=== PATIENT | male | born 2000 | race Caucasian/White ===

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

== ENCOUNTER 2018-06-19 00:52 | Emergency (ER) | payer OTHER ==
[2018-06-19 01:00] VITALS: RESP 18
[2018-06-19] MEDS ORDERED: LIDOCAINE 1% INJ 10MG/ML (20 ML MDV) SQ ONE (01:37)
--- NOTE | 2018-06-19 03:09 | ED ---
Skin/Abscess/FB HPI - General Chief complaint: Skin/Abscess/Foreign Body Stated complaint: Multiple leg abscesses Time Seen by Provider: 06/19/18 01:33 Source: patient Mode of arrival: ambulatory Limitations: no limitations - History of Present Illness Initial comments: 18-year-old male patient presented to the emergency department today for evaluation of abscess to the right lower leg. The patient states that his girlfriend was recently admitted for multiple abscesses. States that he first noticed the lesion 2 days ago. States it has become more red and swollen. States it is tender to touch. He denies any drainage from the site. States he has been applying warm compresses but has been unable to get it to drain. He denies any fever or chills. Denies any history of similar symptoms. Denies any alcohol or use of street drugs. Patient denies any recent rash, fever, chills, shortness breath, chest pain, abdominal pain, nausea, vomiting, diarrhea , constipation, back pain, numbness, tingling, dizziness, weakness, hematuria, dysuria, urinary urgency, urinary frequency, headache, visual changes, or any other complaints. - Related Data Previous Rx's Medication Instructions Recorded Ciprofloxacin HCl [Cipro] 500 mg PO BID #10 tab 12/25/16 Sulfamethoxazole/Trimethoprim 1 each PO BID #14 tablet 06/19/18 [Bactrim DS 800-160 mg] Allergies Allergy/AdvReac Type Severity Reaction Status Date / Time prednisone AdvReac Nausea & Verified 06/19/18 01:02 Vomiting Review of Systems ROS Statement: Those systems with pertinent positive or pertinent negative responses have been documented in the HPI. ROS Other: All systems not noted in ROS Statement are negative. Past Medical History Past Medical History: Asthma, Pneumonia History of Any Multi-Drug Resistant Organisms: None Reported Past Surgical History: No Surgical Hx Reported Past Psychological History: ADD/ADHD, Bipolar, Depression Smoking Status: Never smoker Past Alcohol Use History: None Reported Past Drug Use History: Marijuana - Past Family History Mother Family Medical History: GERD/Reflux Father Family Medical History: Diabetes Mellitus General Exam Limitations: no limitations General appearance: alert, in no apparent distress Eye exam: Present: normal appearance, PERRL, EOMI. Absent: scleral icterus, conjunctival injection, periorbital swelling ENT exam: Present: normal exam, normal oropharynx, mucous membranes moist Respiratory exam: Present: normal lung sounds bilaterally. Absent: respiratory distress, wheezes, rales, rhonchi, stridor Cardiovascular Exam: Present: regular rate, normal rhythm, normal heart sounds. Absent: systolic murmur, diastolic murmur, rubs, gallop, clicks Extremities exam: Present: full ROM, normal capillary refill, other (Agent has 2 cm abscess noted to the right lateral calf. There is minimal surrounding erythema. Fluctuance noted. No evidence of drainage at this time.). Absent: normal inspection, tenderness, pedal edema, joint swelling, calf tenderness Neurological exam: Present: alert, oriented X3, CN II-XII intact Psychiatric exam: Present: normal affect, normal mood Skin exam: Present: warm, dry, intact, normal color. Absent: rash Course Vital Signs 06/19/18 06/19/18 00:56 04:10 Temperature 99.0 F 97.8 F Pulse Rate 81 71 Respiratory 18 18 Rate Blood Pressure 127/77 149/94 O2 Sat by Pulse 97 98 Oximetry Procedures - Incision & Drainage Consent Obtained: verbal consent Site: lower extremity (Right lateral calf) Size (cm): 2 Anesthetic Used: lidocaine 1% Amount (mLs): 5 I&D Cleaning Method: Betadine Sterile Field Used?: Yes Scalpel Used: #11 Needle Aspiration Performed?: No Irrigation Performed?: No I&D Drainage Obtained: Pus, Blood Packing: Iodoform Culture Obtained?: Yes Patient Tolerated Procedure: well Medical Decision Making - Medical Decision Making 18-year-old male patient presented to the emergency department today for evaluation of abscess to the right lower leg. Physical examination did reveal 2 cm abscess with minimal surrounding erythema to the right lower leg. There is some fluctuance. Did perform incision and drainage and did get output of pus and blood. Wound was packed with iodoform gauze. Patient was educated regarding wound care and application of warm compresses. He'll be given a prescription for Bactrim. He is instructed to follow-up with his primary care physician for recheck of the wound in 1-2 days. Return parameters were discussed in detail. He verbalizes understanding and agrees with this plan. Disposition Clinical Impression: Abscess of right lower leg Disposition: HOME SELF-CARE Condition: Good Instructions: Abscess Incision and Drainage (ED), Abscess (ED) Additional Instructions: Apply warm compresses to the right leg 20 minutes at a time at least 4 times per day. Complete antibiotic prescription and full. Follow-up with your primary care physician for recheck in 1-2 days. Return here immediately for any new, worsening, or concerning symptoms. Prescriptions: Sulfamethoxazole/Trimethoprim [Bactrim DS 800-160 mg] 1 each PO BID #14 tablet Is patient prescribed a controlled substance at d/c from ED?: No Referrals: None,Stated [Primary Care Provider] - 1-2 days Time of Disposition: 03:09
[2018-06-19 04:11] VITALS: BP 149/94; PULSE 71; TEMP 97.8
== END 2018-06-19 04:14 | disposition home or self-care (01) ==
LOC: EC 00:52
DX: L02.415 Cutaneous abscess of right lower limb (principal); Z88.8 Allergy status to other drugs, medicaments and biological substances
CPT/HCPCS: 10060; 87070; 87205; 99283

== ENCOUNTER 2018-07-04 15:05 | Emergency (ER) | payer OTHER ==
[2018-07-04 16:00] VITALS: BP 122/70; PULSE 60; RESP 18; TEMP 98.2
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
--- NOTE | 2018-07-04 16:57 | XR ---
EXAMINATION TYPE: XR lumbosacral spine min 4V DATE OF EXAM: 07/04/2018 COMPARISON: NONE HISTORY: Pain TECHNIQUE: 5 views FINDINGS: Lumbar vertebra have normal alignment. Posterior elements are intact. There is slight narro wing of L4-5 disc space. Sacroiliac joints appear intact. IMPRESSION: Slight narrowing at L4-5. No fracture.
== END 2018-07-04 18:00 | disposition home or self-care (01) ==
LOC: EC 15:05
DX: S39.012A Strain of muscle, fascia and tendon of lower back, initial encounter (principal); J06.9 Acute upper respiratory infection, unspecified; F12.188 Cannabis abuse with other cannabis-induced disorder; R11.2 Nausea with vomiting, unspecified; F17.200 Nicotine dependence, unspecified, uncomplicated; Z86.14 Personal history of Methicillin resistant Staphylococcus aureus infection; Z88.1 Allergy status to other antibiotic agents; Z88.8 Allergy status to other drugs, medicaments and biological substances; W10.9XXA Fall (on) (from) unspecified stairs and steps, initial encounter; Y93.01 Activity, walking, marching and hiking
CPT/HCPCS: 72110; 87081; 87430; 99284

== ENCOUNTER 2018-07-10 17:35 | Emergency (ER) | payer OTHER ==
[2018-07-10 17:59] VITALS: BP 151/79; PULSE 59; RESP 20; TEMP 98.3
--- NOTE | 2018-07-10 18:33 | ED ---
Back Pain HPI - General Chief Complaint: Back Pain/Injury Stated Complaint: back pain Time Seen by Provider: 07/10/18 18:06 Source: patient, RN notes reviewed Mode of arrival: ambulatory Limitations: no limitations - History of Present Illness Initial Comments: This is a 18-year-old male who presents to the emergency department with chief complaint of low back pain. Patient states that he was seen here last Saturday after he slipped and fell. He states that an x-ray of his low back was obtained at the time and patient was told it was normal. He states he was discharged home with a prescription for Tylenol. Patient states that the pain has not improved. He reports pain to the left lower back with radiation down the back of his left leg. He states that radiation of pain occurs with movement and walking. He denies any new falls, injuries or trauma. Denies saddle paresthesias or loss of bladder or bowel function. Denies IV drug use. Denies numbness or tingling. Denies recent fevers or chills. - Related Data Home Medications Medication Instructions Recorded Confirmed Acetaminophen/Diphenhydramine 1 tab PO HS PRN 07/04/18 07/04/18 [Tylenol PM Extra Strength] Ibuprofen [Motrin Ib] 400 mg PO Q6H PRN 07/04/18 07/04/18 Previous Rx's Medication Instructions Recorded Acetaminophen [Tylenol] 1,000 mg PO Q4-6H PRN #24 tab 07/04/18 Ibuprofen 600 mg PO Q6HR #20 tablet 07/10/18 Allergies Allergy/AdvReac Type Severity Reaction Status Date / Time azithromycin Allergy Rash/Hives Verified 07/10/18 17:59 prednisone AdvReac Nausea & Verified 07/10/18 17:59 Vomiting Review of Systems ROS Statement: Those systems with pertinent positive or pertinent negative responses have been documented in the HPI. ROS Other: All systems not noted in ROS Statement are negative. Past Medical History Past Medical History: Asthma, Pneumonia History of Any Multi-Drug Resistant Organisms: MRSA Date of last positivie culture/infection: 06/19/18 MDRO Source:: LEG Past Surgical History: Orthopedic Surgery Additional Past Surgical History / Comment(s): R ankle Past Psychological History: ADD/ADHD, Bipolar, Depression Smoking Status: Current every day smoker Past Alcohol Use History: None Reported Past Drug Use History: Marijuana - Past Family History Mother Family Medical History: GERD/Reflux Father Family Medical History: Diabetes Mellitus General Exam - General Exam Comments Initial Comments: General: Awake and alert, well-developed; in no apparent distress. HEENT: Head atraumatic, normocephalic. Pupils are equal, round and reactive to light. Extraocular movements intact. Oropharynx moist without erythema or exudate. Neck: Supple. Normal ROM. Cardiovascular: Regular rate and rhythm. No murmurs, rubs or gallops. Chest symmetrical. Pedal pulses 2+ equal and palpable bilaterally. Respiratory: Lungs clear to auscultation bilaterally. No wheezes, rales or rhonchi. Normal respiratory effort with no use of accessory muscles. Musculoskeletal: Normal ROM, no tenderness bilateral upper and lower extremities. Ambulating normally. Skin: Graham, warm and dry without rashes or lesions. Neurological: Alert and oriented x3. CN II-XII grossly intact. Speech is fluent and answers are appropriate. No focal neuro deficits. Psychiatric: Normal mood and affect. No overt signs of depression or anxiety noted. Limitations: no limitations Back exam: Present: normal inspection, tenderness (Left SI joint tenderness on palpation). Absent: paraspinal tenderness, vertebral tenderness Course Vital Signs 07/10/18 17:56 Temperature 98.3 F Pulse Rate 59 L Respiratory 20 Rate Blood Pressure 151/79 O2 Sat by Pulse 99 Oximetry Medical Decision Making - Medical Decision Making This is a 18-year-old male who presents to the emergency department with chief complaint of back pain. Patient states he was seen here in the emergency department last Saturday after falling. X-ray from last Saturday was reviewed which revealed no acute abnormalities. Patient was discharged home with Tylenol. He reports no improvement of pain. Denies saddle paresthesias or loss of bladder or bowel function. Denies IV drug use. Patient reports pain starts in the left low back and radiates down the back of his left leg. He is neurovascularly intact. Denies any new falls, injuries or trauma. Patient is ambulating normally. Patient is likely suffering from lumbar radiculopathy. He will be started on a course of ibuprofen. Vitals are stable and patient is in no acute distress. He will be discharged home at this time. He is in agreement with plan and voices understanding. All questions have been answered. Disposition Clinical Impression: Lumbar radiculopathy Disposition: HOME SELF-CARE Condition: Good Instructions: Acute Low Back Pain (ED), Lumbar Radiculopathy (ED) Additional Instructions: Please take medications as prescribed. Please follow up with primary care provider within 1-2 days. Return to emergency department if symptoms should worsen or any concerns arise. Prescriptions: Ibuprofen 600 mg PO Q6HR #20 tablet Is patient prescribed a controlled substance at d/c from ED?: No Referrals: Lake Gutiérrez MD [Primary Care Provider] - 1-2 days Time of Disposition: 18:46
== END 2018-07-10 18:57 | disposition home or self-care (01) ==
LOC: EC 17:35
DX: M54.16 Radiculopathy, lumbar region (principal); F17.200 Nicotine dependence, unspecified, uncomplicated; Z88.1 Allergy status to other antibiotic agents; Z88.8 Allergy status to other drugs, medicaments and biological substances; Z86.14 Personal history of Methicillin resistant Staphylococcus aureus infection
CPT/HCPCS: 99283

== ENCOUNTER 2021-10-05 18:49 | Emergency (ER) | payer OTHER ==
[2021-10-05 19:01] VITALS: RESP 16; TEMP 99.1
--- NOTE | 2021-10-05 20:11 | ED ---
General Adult HPI - General Chief complaint: Recheck/Abnormal Lab/Rx Stated complaint: Covid test Time Seen by Provider: 10/05/21 19:45 Source: patient, family, RN notes reviewed Mode of arrival: ambulatory Limitations: no limitations - History of Present Illness Initial comments: Patient is a pleasant 21-year-old male presenting to the emergency Department with exposure to COVID-19. Patient did have mild congestion 4 days ago however this has resolved and has been symptom-free since that time. Patient has no other complaints or symptoms. Patient needs to be tested negative prior to returning to work. Patient has taken home tests that have returned negative results. - Related Data Home Medications Medication Instructions Recorded Confirmed Acetaminophen/Diphenhydramine 1 tab PO HS PRN 07/04/18 07/04/18 [Tylenol PM Extra Strength] Ibuprofen [Motrin Ib] 400 mg PO Q6H PRN 07/04/18 07/04/18 Previous Rx's Medication Instructions Recorded Acetaminophen [Tylenol] 1,000 mg PO Q4-6H PRN #24 tab 07/04/18 Ibuprofen 600 mg PO Q6HR #20 tablet 07/10/18 Allergies Allergy/AdvReac Type Severity Reaction Status Date / Time azithromycin Allergy Rash/Hives Verified 10/05/21 19:01 prednisone AdvReac Nausea & Verified 10/05/21 19:01 Vomiting Review of Systems ROS Statement: Those systems with pertinent positive or pertinent negative responses have been documented in the HPI. ROS Other: All systems not noted in ROS Statement are negative. Constitutional: Denies: fever ENT: Reports: congestion (Resolved) Respiratory: Denies: cough, dyspnea Endocrine: Denies: fatigue Gastrointestinal: Denies: vomiting Past Medical History Past Medical History: Asthma, Pneumonia History of Any Multi-Drug Resistant Organisms: MRSA Date of last positivie culture/infection: 06/19/18 MDRO Source:: LEG Past Surgical History: Orthopedic Surgery Additional Past Surgical History / Comment(s): R ankle Past Psychological History: ADD/ADHD, Bipolar, Depression Smoking Status: Never smoker Past Alcohol Use History: None Reported Past Drug Use History: Marijuana - Past Family History Mother Family Medical History: GERD/Reflux Father Family Medical History: Diabetes Mellitus General Exam Limitations: no limitations General appearance: alert, in no apparent distress Head exam: Present: normocephalic Neck exam: Present: normal inspection Respiratory exam: Present: normal lung sounds bilaterally Cardiovascular Exam: Present: regular rate, normal rhythm Extremities exam: Present: normal inspection Neurological exam: Present: alert Psychiatric exam: Present: normal affect, normal mood Skin exam: Present: normal color Course Vital Signs 10/05/21 18:59 Temperature 99.1 F Pulse Rate 100 Respiratory 16 Rate Blood Pressure 146/92 O2 Sat by Pulse 99 Oximetry Medical Decision Making - Lab Data Lab Results 10/05/21 Range/Units 19:03 Coronavirus (PCR) Not Detected (Not Detectd) Disposition Clinical Impression: Exposure to COVID-19 virus Disposition: HOME SELF-CARE Condition: Stable Instructions (If sedation given, give patient instructions): Coronavirus Disease 2019 (COVID-19) Additional Instructions: There is potential for false negative results, please continue to wear mask and expose other people. Return for fevers, congestion, shortness of breath, not tolerating fluids, worsening symptoms or other concerns. Please follow-up with primary care physician in the next couple days for recheck. Is patient prescribed a controlled substance at d/c from ED?: No Referrals: Lake Whalen MD [STAFF PHYSICIAN] - 1-2 days Time of Disposition: 20:11
[2021-10-05 20:53] VITALS: BP 135/79; PULSE 98
== END 2021-10-05 20:35 | disposition home or self-care (01) ==
LOC: EC 18:49
DX: Z20.822 Contact with and (suspected) exposure to COVID-19 (principal); J45.909 Unspecified asthma, uncomplicated; Z88.1 Allergy status to other antibiotic agents; Z88.8 Allergy status to other drugs, medicaments and biological substances
CPT/HCPCS: 87635; 99283

== ENCOUNTER 2021-10-21 06:46 | Emergency (ER) | payer BC ==
[2021-10-21 07:01] VITALS: BP 127/75; PULSE 60; RESP 18; TEMP 98
--- NOTE | 2021-10-21 07:28 | ED ---
General Adult HPI - General Chief complaint: Wound/Laceration Stated complaint: hand lac Time Seen by Provider: 10/21/21 06:55 Source: patient, RN notes reviewed Mode of arrival: ambulatory - History of Present Illness Initial comments: 21-year-old male presents to the emergency room for a chief complaint of right hand injury. Patient states that he got his hand and in the car door last night about 12 hours ago. Patient since. 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 Patient is up-to-date on tetanus within the past 5 years.Patient has no other complaints at this time including shortness of breath, chest pain, abdominal pain, nausea or vomiting, headache, or visual changes. - Related Data Home Medications Medication Instructions Recorded Confirmed Acetaminophen/Diphenhydramine 1 tab PO HS PRN 07/04/18 07/04/18 [Tylenol PM Extra Strength] Ibuprofen [Motrin Ib] 400 mg PO Q6H PRN 07/04/18 07/04/18 Previous Rx's Medication Instructions Recorded Acetaminophen [Tylenol] 1,000 mg PO Q4-6H PRN #24 tab 07/04/18 Ibuprofen 600 mg PO Q6HR #20 tablet 07/10/18 Cephalexin [Keflex] 500 mg PO QID 5 Days #20 cap 10/21/21 Allergies Allergy/AdvReac Type Severity Reaction Status Date / Time azithromycin Allergy Rash/Hives Verified 10/05/21 19:01 prednisone AdvReac Nausea & Verified 10/05/21 19:01 Vomiting Review of Systems ROS Statement: Those systems with pertinent positive or pertinent negative responses have been documented in the HPI. ROS Other: All systems not noted in ROS Statement are negative. Past Medical History Past Medical History: Asthma, Pneumonia History of Any Multi-Drug Resistant Organisms: MRSA Date of last positivie culture/infection: 06/19/18 MDRO Source:: LEG Past Surgical History: Orthopedic Surgery Additional Past Surgical History / Comment(s): R ankle Past Psychological History: ADD/ADHD, Bipolar, Depression Smoking Status: Never smoker Past Alcohol Use History: None Reported Past Drug Use History: Marijuana - Past Family History Mother Family Medical History: GERD/Reflux Father Family Medical History: Diabetes Mellitus General Exam General appearance: alert, in no apparent distress Head exam: Present: atraumatic Eye exam: Present: normal appearance, PERRL, EOMI. Absent: scleral icterus, conjunctival injection ENT exam: Present: normal exam, mucous membranes moist Neck exam: Present: normal inspection, full ROM. Absent: tenderness Respiratory exam: Present: normal lung sounds bilaterally. Absent: respiratory distress, wheezes Cardiovascular Exam: Present: regular rate, normal rhythm, normal heart sounds Extremities exam: Present: full ROM (Full range of motion of all digits of the right hand.), tenderness (Generalized tenderness to the dorsum of the right hand. Patient has small 1 cm laceration over the second dorsal metacarpal head.), normal capillary refill (Capillary refill less than 2 seconds in all digits of the right hand.) Course Vital Signs 10/21/21 06:52 Temperature 98.0 F Pulse Rate 60 Respiratory 18 Rate Blood Pressure 127/75 O2 Sat by Pulse 97 Oximetry Medical Decision Making - Medical Decision Making Vitals are stable. Patient is well-appearing. Patient has small abrasions noted to the second metacarpal head as well as the proximal phalanx of the third digit. Given these were obtained about 12 hours ago they were irrigated and Steri-Strips were applied. Patient is already up-to-date on tetanus. X-ray shows no fractures. However given wounds and not really being able to evaluate them thoroughly given they were obtained 12 hours ago we will start him on a few days of antibiotics and he will be given a couple days off work. He will return here for any worsening symptoms and otherwise follow-up with his doctor. Disposition Clinical Impression: Laceration, Hand injury Disposition: HOME SELF-CARE Condition: Good Instructions (If sedation given, give patient instructions): Laceration (ED), Steristrips (ED) Additional Instructions: Please keep the wounds clean and dry. Trim Steri-Strips as they come off. Take antibiotic as directed. Follow-up with your doctor. If symptoms do not improve in 7-10 days you may need repeat x-rays. Otherwise return to the emergency room. Prescriptions: Cephalexin [Keflex] 500 mg PO QID 5 Days #20 cap Is patient prescribed a controlled substance at d/c from ED?: No Referrals: Beti Butts MD [REFERRING] - 1-2 days Time of Disposition: 08:00
--- NOTE | 2021-10-21 07:54 | XR ---
EXAMINATION TYPE: XR hand complete RT DATE OF EXAM: 10/21/2021 CLINICAL HISTORY: Injury with pain TECHNIQUE: Frontal, lateral and oblique images of the right hand are obtained. COMPARISON: None. FINDINGS: There is no acute fracture/dislocation evident in the right hand. The joint spaces in the right hand appear within normal limits. The overlying soft tissue appears unremarkable without suspi cious radiodense foreign body seen. IMPRESSION: There is no acute fracture or dislocation in the right hand.
== END 2021-10-21 08:25 | disposition home or self-care (01) ==
LOC: EC 06:46
DX: S61.411A Laceration without foreign body of right hand, initial encounter (principal); J45.909 Unspecified asthma, uncomplicated; F12.90 Cannabis use, unspecified, uncomplicated; Z79.1 Long term (current) use of non-steroidal anti-inflammatories (NSAID); W23.0XXA Caught, crushed, jammed, or pinched between moving objects, initial encounter
CPT/HCPCS: 99283

== ENCOUNTER 2022-07-16 16:10 | Emergency (ER) | payer OTHER ==
[2022-07-16 16:43] VITALS: BP 135/72; PULSE 65; RESP 20; TEMP 98
--- NOTE | 2022-07-16 17:59 | ED ---
General Adult HPI - General Chief complaint: Upper Respiratory Infection Stated complaint: Fever,Sore Throat Time Seen by Provider: 07/16/22 17:48 Source: patient, RN notes reviewed Mode of arrival: ambulatory Limitations: no limitations - History of Present Illness Initial comments: Patient is a 22-year-old male presenting to the emergency room with complaints of sore throat, fever, nausea, vomiting and cough ongoing throughout the weekend (the last 3 days). He states that his highest temperature over the last several days was just over 102. He has not had a fever since early this morning. He states that his girlfriend whom he lives with was recently diagnosed with influenza and he is concerned that he may have the flu. In addition to his listed symptoms he is complaining of generalized malaise and fatigue. He denies any chest pain, shortness of breath, abdominal pain, diarrhea, current fever or chills. He has a past medical history significant for asthma but does not utilize any inhalers or medications on a regular basis. He also has mental health history significant for ADHD and depression. - Related Data Home Medications Medication Instructions Recorded Confirmed Acetaminophen/Diphenhydramine 1 tab PO HS PRN 07/04/18 07/04/18 [Tylenol PM Extra Strength] Ibuprofen [Motrin Ib] 400 mg PO Q6H PRN 07/04/18 07/04/18 Previous Rx's Medication Instructions Recorded Acetaminophen [Tylenol] 1,000 mg PO Q4-6H PRN #24 tab 07/04/18 Ibuprofen 600 mg PO Q6HR #20 tablet 07/10/18 Cephalexin [Keflex] 500 mg PO QID 5 Days #20 cap 10/21/21 Allergies Allergy/AdvReac Type Severity Reaction Status Date / Time azithromycin Allergy Rash/Hives Verified 07/16/22 16:44 prednisone AdvReac Nausea & Verified 07/16/22 16:44 Vomiting Review of Systems ROS Statement: Those systems with pertinent positive or pertinent negative responses have been documented in the HPI. ROS Other: All systems not noted in ROS Statement are negative. Past Medical History Past Medical History: Asthma, Pneumonia History of Any Multi-Drug Resistant Organisms: MRSA Date of last positivie culture/infection: 06/19/18 MDRO Source:: LEG Past Surgical History: Orthopedic Surgery Additional Past Surgical History / Comment(s): R ankle Past Psychological History: ADD/ADHD, Bipolar, Depression Smoking Status: Never smoker Past Alcohol Use History: None Reported Past Drug Use History: Marijuana - Past Family History Mother Family Medical History: GERD/Reflux Father Family Medical History: Diabetes Mellitus General Exam Limitations: no limitations General appearance: alert, in no apparent distress Head exam: Present: atraumatic, normocephalic, normal inspection Eye exam: Present: normal appearance, PERRL, EOMI. Absent: scleral icterus, conjunctival injection, periorbital swelling ENT exam: Present: normal exam, mucous membranes moist Neck exam: Present: normal inspection, full ROM. Absent: lymphadenopathy Respiratory exam: Present: normal lung sounds bilaterally. Absent: respiratory distress, wheezes, rales, rhonchi, stridor Cardiovascular Exam: Present: regular rate, normal rhythm, normal heart sounds. Absent: systolic murmur, diastolic murmur, rubs, gallop, clicks GI/Abdominal exam: Present: soft, normal bowel sounds. Absent: distended, tenderness, guarding, rebound, rigid Extremities exam: Present: normal inspection. Absent: pedal edema, joint swelling Back exam: Present: normal inspection Neurological exam: Present: alert, oriented X3, CN II-XII intact Psychiatric exam: Present: normal affect, normal mood Skin exam: Present: warm, dry, intact, normal color. Absent: rash Course Vital Signs 07/16/22 16:42 Temperature 98 F Pulse Rate 65 Respiratory 20 Rate Blood Pressure 135/72 O2 Sat by Pulse 99 Oximetry Medical Decision Making - Medical Decision Making 22-year-old male presenting with sore throat, fever, nausea, vomiting and cough ongoing for 3 days. Currently afebrile. No exposure to influenza. Will obtain Covid and influenza swabs. No indication for further diagnostic imaging or other laboratory studies. COVID and influenza negative. No indication for antibiotic therapy is at this time consider viral infection. Encouraged supportive treatment and follow-up care with primary care provider. Will discharge home. Case discussed with Dr. Martin. - Lab Data Lab Results 07/16/22 07/16/22 Range/Units 16:46 17:56 Coronavirus (PCR) Not Detected (Not Detectd) Influenza Type A RNA Not Detected (Not Detectd) Influenza Type B (PCR) Not Detected (Not Detectd) Disposition Clinical Impression: Viral infection Disposition: HOME SELF-CARE Condition: Stable Instructions (If sedation given, give patient instructions): Upper Respiratory Infection (ED) Additional Instructions: Please stay well hydrated. Utilize Tylenol or ibuprofen as needed for pain. Utilize Mucinex DM [id number] as needed for cough and congestion. Please follow-up with your primary care provider. Please return to the Emergency Department if symptoms worsen or any other concerns. Is patient prescribed a controlled substance at d/c from ED?: No Referrals: None,Stated [Primary Care Provider] - 1-2 days Time of Disposition: 19:03
== END 2022-07-16 19:14 | disposition home or self-care (01) ==
LOC: EC 16:10
DX: B34.9 Viral infection, unspecified (principal); J45.909 Unspecified asthma, uncomplicated; F31.9 Bipolar disorder, unspecified; F12.90 Cannabis use, unspecified, uncomplicated; Z88.1 Allergy status to other antibiotic agents; Z88.8 Allergy status to other drugs, medicaments and biological substances; Z79.899 Other long term (current) drug therapy; Z20.822 Contact with and (suspected) exposure to COVID-19
CPT/HCPCS: 87502; 87635; 99284

== ENCOUNTER → 2022-08-07 | Outpatient (CLI) | payer OTHER ==
[2022-08-08 00:11] LABS: ALT 121 U/L (10-49); AST 52 U/L (14-35); African American GFR (CKD) 120.1 (60.0-200.0); Albumin 4.8 g/dL (3.8-4.9); Albumin/Globulin Ratio 1.75 (1.60-3.17); Alkaline Phosphatase 76 U/L (41-126); BUN/Creat Ratio 18.42 Ratio (12.00-20.00); Bilirubin, Conjugated <0.20 mg/dL (0.20-0.40); Blood Urea Nitrogen 18.6 mg/dL (9.0-27.0); Calcium 9.6 mg/dL (8.7-10.3); Carbon Dioxide 23.9 mmol/L (20.0-27.5); Chloride 104 mmol/L (96-109); Chol/HDL Ratio 2.74 Ratio; Globulin 2.8 g/dL (1.6-3.3); Glucose 84 mg/dL (70-110); Iron 84 ug/dL (65-175); LDL Cholesterol,Calculated 43.9 mg/dL (0.0-131.0); Non-African American GFR(CKD) 103.6 (60.0-200.0); Potassium 3.9 mmol/L (3.5-5.5); Sodium 140 mmol/L (135-145); Total Iron Binding Capacity 384 ug/dL (228-460); Total Protein 7.6 g/dL (6.2-8.2)
[2022-08-08 00:23] LABS: Hepatitis A Antibody IgM Nonreactive (Nonreactive); Hepatitis B Core IgM Nonreactive (Nonreactive); Hepatitis B Surface Antigen Nonreactive (Nonreactive); Hepatitis C IgG Antibody Nonreactive (Nonreactive)
[2022-08-08 03:29] LABS: Ceruloplasmin 22.9 mg/dL (20.0-60.0)
[2022-08-08 06:01] LABS: EBV - VCA IgM <10.0 U/mL (<36.0)
[2022-08-08 12:00] LABS: Smooth Muscle Antibody 7 UNITS (<20)
== END | disposition home or self-care (01) ==
LOC: LABWHC1 13:50
PROVIDERS: ATTEND Internal Medicine
DX: R74.01 Elevation of levels of liver transaminase levels (principal)
CPT/HCPCS: 36415; 80053; 80061; 80074; 82103; 82248; 82390; 82525; 83516; 83540; 83550; 86038; 86645; 86665

== ENCOUNTER 2025-01-25 08:50 | Emergency (ER) | payer OTHER ==
[2025-01-25 08:56] VITALS: TEMP 98.1
--- NOTE | 2025-01-25 09:15 | ED ---
Fall HPI - General Chief Complaint: Fall Stated Complaint: injury, L shoulder, R hand Time Seen by Provider: 01/25/25 09:00 Source: patient, RN notes reviewed Mode of arrival: ambulatory Limitations: no limitations - History of Present Illness Initial Comments: This is a 24-year-old male who presents to the emergency department for a fall. Patient tripped and fell out of the bed of a truck and landed on his left shoulder. States that this was about 6 to 7 feet in the air. After he landed on his shoulder he bumped his head, but states that he barely had any impact to this and denies any headaches. Also denies any loss of consciousness or blood thinner use. Currently complaining of pain to the left shoulder and right wrist. States that his left shoulder was initially dislocated and one of his friends put it back into place. However, he is still having a lot of discomfort in this area. MD Complaint: fall - Related Data Home Medications Medication Instructions Recorded Confirmed Acetaminophen/Diphenhydramine 1 tab PO HS PRN 07/04/18 07/04/18 [Tylenol PM Extra Strength] Ibuprofen [Motrin Ib] 400 mg PO Q6H PRN 07/04/18 07/04/18 Previous Rx's Medication Instructions Recorded Acetaminophen [Tylenol] 1,000 mg PO Q4-6H PRN #24 tab 07/04/18 Ibuprofen 600 mg PO Q6HR #20 tablet 07/10/18 Cephalexin [Keflex] 500 mg PO QID 5 Days #20 cap 10/21/21 HYDROcodone/APAP 5-325MG [Arrington 1 tab PO Q6HR PRN 3 Days #12 tab 01/25/25 5-325] Ibuprofen [Motrin] 800 mg PO Q8H PRN #30 tab 01/25/25 Allergies Allergy/AdvReac Type Severity Reaction Status Date / Time azithromycin Allergy Rash/Hives Verified 01/25/25 08:56 prednisone AdvReac Nausea & Verified 01/25/25 08:56 Vomiting Review of Systems ROS Statement: Those systems with pertinent positive or pertinent negative responses have been documented in the HPI. ROS Other: All systems not noted in ROS Statement are negative. Past Medical History Past Medical History: Asthma, Pneumonia History of Any Multi-Drug Resistant Organisms: MRSA Date of last positivie culture/infection: 06/19/18 MDRO Source:: LEG Past Surgical History: Orthopedic Surgery Additional Past Surgical History / Comment(s): R ankle Past Psychological History: ADD/ADHD, Bipolar, Depression Smoking Status: Never smoker Past Alcohol Use History: None Reported Past Drug Use History: Marijuana - Past Family History Mother Family Medical History: GERD/Reflux Father Family Medical History: Diabetes Mellitus General Exam Limitations: no limitations General appearance: alert, in no apparent distress Head exam: Present: atraumatic, normocephalic, normal inspection Eye exam: Present: normal appearance, PERRL, EOMI. Absent: scleral icterus, conjunctival injection, periorbital swelling Respiratory exam: Present: normal lung sounds bilaterally. Absent: respiratory distress, wheezes, rales, rhonchi, stridor Cardiovascular Exam: Present: regular rate, normal rhythm Extremities exam: Present: other (Tenderness to palpation of the left shoulder. No deformities. Range of motion limited by pain. 2+ radial pulses. Tenderness to palpation over the right wrist. Range of motion limited by pain. 2+ radial pulses.) Neurological exam: Present: alert, oriented X3, CN II-XII intact Psychiatric exam: Present: normal affect, normal mood Skin exam: Present: warm, dry, intact, normal color. Absent: rash Course Vital Signs 01/25/25 01/25/25 08:51 12:16 Temperature 98.1 F Pulse Rate 68 67 Respiratory 18 20 Rate Blood Pressure 168/107 146/84 O2 Sat by Pulse 99 97 Oximetry Procedures - Orthopedic Splinting/Casting Injury #1 Side: right Upper Extremity Injury Location: wrist Upper Extremity Immobilizer: volar splint, fiberglass cast Medical Decision Making - Medical Decision Making This is a 24-year-old male who presents to the emergency department for a left shoulder and right wrist injury. Was pt. sent in by a medical professional or institution? @ -No Did you speak to anyone other than the patient for history? @ -No Did you review nursing and triage notes? @ -Yes, and I agree, it is accurate with regards to the patient's symptoms. Were old charts reviewed? @ -No Differential Diagnosis? @ -Differential Musculoskeletal Muscular strain, contusion, ligament sprain, fracture, arthritis, septic arthritis, bursitis, cellulitis, muscle spasm, nerve compression, DVT, arterial occlusion, herpes zoster, electrolyte abnormality, tumor.... This is not meant to be in all inclusive list EKG interpreted by me (3pts min.)? @ -Not obtained X-rays interpreted by me (1pt min.)? @ -X-ray of the right wrist obtained. My interpretation identifies a vertical lucency in the distal radius. X-ray of the left shoulder obtained. My interpretation identifies a possible fracture in the glenoid. CT interpreted by me (1pt min.)? @ -CT scan of the left shoulder obtained. My interpretation identifies a fracture to the anterior corner of the glenoid. U/S interpreted by me (1pt. min.)? @ -Not obtained What testing was considered but not performed? (CT, X-rays, U/S, labs)? Why? @ -None What meds were considered but not given? Why? @ -None Did you discuss the management of the patient with other professionals? @ -No Did you reconcile home meds? @ -No Was smoking cessation discussed for >3mins.? @ -No Was critical care preformed (if so, how long)? @ -No Were there social determinants of health that impacted care today? How? (Homelessness, low income, unemployed, alcoholism, drug addiction, transportation, low edu. Level, literacy, decrease access to med. care, fdc, rehab)? @ -No Was there de-escalation of care discussed even if they declined? (Discuss DNR or withdrawal of care, Hospice)? @ -No What co-morbidities impacted this encounter? (DM, HTN, Smoking, COPD, CAD, Cancer, CVA, Hep., AIDS, mental health diagnosis, sleep apnea, morbid obesity)? @ -None Was patient admitted / discharged? @ -Discharged. We started with x-rays of the right wrist and left shoulder. X-ray of the right wrist demonstrates an area demonstrating either a projectional artifact versus nondisplaced vertically oriented fracture involving the distal radial metadiaphysis. X-ray of the left shoulder demonstrates a bony irregularity along the inferior aspect of the glenoid. They are unsure if this is an artifact versus underlying injury and they advised further evaluation with a CT. CT scan of the left shoulder demonstrates a fracture from the anterior inferior corner of the glenoid with mild displacement. Findings reviewed with the patient. Given that he only sustained very minor blunt head trauma after he had already taken the impact from the fall, no imaging of the brain was obtained. Patient has a GCS of 15 and is A&O x 4. He is also denying any headaches. His left arm was put into a sling and a volar splint was appli ed to the right wrist. Information for orthopedic follow-up provided, however he will have to go through Worker's Comp. to get this scheduled. Ibuprofen and Arrington prescribed for pain control. Patient discharged home in stable condition. Case discussed with ED attending Dr. Johnson. Return precautions reviewed in depth, the patient is instructed to return to the emergency department with any new, worsening, or concerning symptoms. Patient verbalized understanding. Undiagnosed new problem with uncertain prognosis? @ -None Drug Therapy requiring intensive monitoring for toxicity (Heparin, Nitro, Insulin, Cardizem)? @ -None Were any procedures done? @ -Right volar splint application Diagnosis/symptom? @ -Fall, right distal radius fracture, left glenoid fracture, minor blunt head trauma Acute, or Chronic, or Acute on Chronic? @ -Acute Uncomplicated (without systemic symptoms) or Complicated (systemic symptoms)? @ -Uncomplicated Side effects of treatment? @ -None Exacerbation, Progression, or Severe Exacerbation] @ -Not applicable Poses a threat to life or bodily function? @ -Will limit use of both extremities for the meantime. - Radiology Data Radiology results: report reviewed, image reviewed Disposition Clinical Impression: Fracture of glenoid cavity of left scapula, Fracture of right distal radius, Blunt head trauma Disposition: HOME SELF-CARE Instructions (If sedation given, give patient instructions): Scapular Fracture (ED), Splint Care (ED) Additional Instructions: Return to the emergency department with any new, worsening, or concerning symptoms. Alternate with ibuprofen and Tylenol as needed for pain relief. Take the Arrington sparingly when your pain is the most severe. Make sure you go through Workmen's Comp. to get a follow-up appointment scheduled with orthopedics. Prescriptions: Ibuprofen [Motrin] 800 mg PO Q8H PRN #30 tab PRN Reason: Pain HYDROcodone/APAP 5-325MG [Arrington 5-325] 1 tab PO Q6HR PRN 3 Days #12 tab PRN Reason: Pain Is patient prescribed a controlled substance at d/c from ED?: Yes When asked, does pt state using other controlled substances?: No If prescribed controlled substance>3 days was MAPS reviewed?: Prescribed <3 Days Referrals: Dave Montesinos, [Doctor of Osteopathic Medicine] - 1-2 days (You will need a claim letter from your work before calling to schedule an appoointment. ) [facility] [NON-STAFF] - 1-2 days None,Stated [Primary Care Provider] - 1-2 days Forms: Area PCPs Time of Disposition: 11:39
[2025-01-25] MEDS: KETOROLAC 15 MG/ML 1 ML VIAL IM STA (09:21)
[2025-01-25] MEDS: ONDANSETRON ODT 4 MG TAB PO STA (09:21)
[2025-01-25] MEDS: MORPHINE SULFATE 4 MG/ML SYRINGE IM STA (09:23)
--- NOTE | 2025-01-25 09:48 | XR ---
EXAMINATION TYPE: XR shoulder complete 3 views LT DATE OF EXAM: 01/25/2025 9:38 AM COMPARISON: None CLINICAL INDICATION: Male, 24 years old with history of Fall; PHH, pain TECHNIQUE: 3 views FINDINGS: AC joint appears congruent and intact. Subacromial space is preserved. Appearance of bony irregularit y along the inferior glenoid on the Grashey view. No other acute fracture, subluxation, dislocation i s seen. IMPRESSION: Bony irregularity along the inferior aspect of the glenoid on the Grashey view. Unclear if this repre sents projectional artifact or underlying osseous injury/glenoid fracture. Clinical correlation to de termine the need for further assessment with CT. [facility], , 01/25/2025 9:46 AM
--- NOTE | 2025-01-25 09:50 | XR ---
EXAMINATION TYPE: XR wrist complete RT DATE OF EXAM: 01/25/2025 9:38 AM COMPARISON: None CLINICAL INDICATION: Male, 24 years old with history of Fall; PHH, pain TECHNIQUE: 4 views FINDINGS: The radiocarpal and distal radioulnar joint as well as the midcarpal compartment appear intact. On ankit th AP and oblique views, there is a vertically oriented lucency within the distal radial metadiaphysi s. No displaced fracture is seen. IMPRESSION: Projectional artifact versus nondisplaced vertically oriented fracture involving the distal radial me tadiaphysis. [facility], Workstation: [id number], 01/25/2025 9:48 AM
--- NOTE | 2025-01-25 11:07 | CT ---
EXAMINATION TYPE: CT shoulder LT wo con DATE OF EXAM: 01/25/2025 10:46 AM COMPARISON: Radiograph same day CLINICAL INDICATION: Male, 24 years old with history of Injury, abnormal x-ray; PHH, Patient fell ont o left shoulder from about 6 ft high, abnormal xr TECHNIQUE: CT of the left shoulder without IV contrast. Coronal and sagittal reconstructions performe d. 3-D reconstruction was created on a separate workstation. CT DLP: 866.4 mGycm, Automated exposure control for dose reduction was used. FINDINGS: There is a fracture from the anterior inferior the right. There is 1.2 cm in AP by 2.3 cm craniocauda l and has displacement up to 8 mm. Possible tiny Hill-Sachs deformity, axial image 19. No current subluxation or dislocation. No rotator cuff muscle atrophy. Visualized left hemithorax appears clear. AC joint is intact. IMPRESSION: Imaging confirms a fracture from the anterior inferior corner of the glenoid. The fracture fragment m easures 2.3 x 1.2 cm and is mildly displaced by 8 mm. Correlate for the possibility of a bony Bankart injury. There may be a concurrent tiny Hill-Sachs deformity. No current subluxation or dislocation. [facility], , 01/25/2025 11:05 AM
[2025-01-25] MEDS: HYDROmorphone 1 MG/ML 1 ML SYRINGE IM STA (11:33)
[2025-01-25] MEDS: ACET/COD 300 MG/30 MG STARTER PACK 6 TAB BTL PO STA (12:09)
[2025-01-25 12:19] VITALS: BP 146/84; PULSE 67; RESP 20
== END 2025-01-25 12:16 | disposition home or self-care (01) ==
LOC: EC 08:50
DX: S42.142A Displaced fracture of glenoid cavity of scapula, left shoulder, initial encounter for closed fracture (principal); S52.501A Unspecified fracture of the lower end of right radius, initial encounter for closed fracture; S09.90XA Unspecified injury of head, initial encounter; Z88.1 Allergy status to other antibiotic agents; Z88.8 Allergy status to other drugs, medicaments and biological substances; W01.0XXA Fall on same level from slipping, tripping and stumbling without subsequent striking against object, initial encounter
CPT/HCPCS: 99284; 96372 ×3; 29125; 73030; 73110; 73200; J2270; J1171; J1885